=== PATIENT | male | born 1945 | race Two or more races ===

== ENCOUNTER 2016-05-28 09:54 | Observation (INO) | payer MEDICARE, MEDICAID ==
[2016-04-25 20:38] VITALS: BMI 26.1
[~2016-05-28 09:54] MED LIST: ISOVUE-300 (61%) 50 ML ONE
[2016-05-28] MEDS ORDERED: Levofloxacin 500 mg/100 ml D5W 500 MG/100 ML RTU IV ONE (10:34)
[2016-05-28] MEDS ORDERED: ONDANSETRON HCL 4 MG ODT TAB PO PRN (12:19)
[2016-05-28] MEDS ORDERED: LABETALOL 20 MG/4 ML SYRINGE IV PRN (12:19)
[2016-05-28] MEDS ORDERED: HYDROmorphone 1 MG INJECTION IV PRN ×2 (12:19)
[2016-05-28] MEDS ORDERED: FENTANYL 100 MCG/2 ML VIAL IV PRN ×2 (12:19)
[2016-05-28] MEDS ORDERED: MEPERIDINE 25 MG/ML TUBEX IV PRN (12:19)
[2016-05-28] MEDS ORDERED: hydrALAZINE 20 MG/ML VIAL IV PRN (12:19)
[2016-05-28] MEDS ORDERED: ONDANSETRON HCL 4 MG/2 ML VIAL IV PRN ×2 (12:19→17:13)
--- NOTE | 2016-05-28 12:19 | HIM.ANES ---
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 LAD) EKG Rhythm: Sinus Bradycardia (56) HEENT: Yes: Removable Dental Work, Hx Vision Problem (READING GLASSES), Other HEENT Problems Hx Other HEENT Problems: ALLERGIC RHINNITIS Respiratory: Yes: Hx Snoring Gastrointestinal: Yes: Hx Gastroesophageal Reflux Disease, Hx Gastrointestinal Disorders, Hx Colonoscopy ([address] SALEEM) Genitourinary: Yes: Hx Renal Disease Neurological/Musculoskeletal: No: HX Cerebrovascular Accident, Hx Neurological Disorders Psychological: No Hx Depression, No Hx Mental/Emotional Disorders Endocrine: Yes: Hx Hypothyroidism Blood/Autoimmune: Yes: Hx Anemia No: Hx AIDS, Hx Hepatitis (type) Smoking Status: Former smoker Hx Stress Test (date): Yes (08/2013 ABNORMAL SHOWING ISCHEMIA, NORMAL STRESS AFTER CABG) Hx Echocardiogram (date): Yes (10/19/2013 EF 60-65%, MILD AR) Surgical History: Yes: CABG (09/2013 OCHOA TO LAD) Other Surgical History: CYSTOSCOPY - Focused Physical Exam NPO since: 05/27/16 1900 Mallampati: Class II Thyromental Distance: Greater than 3 Neck: Full Range of Motion Dental: Removable Dental Work Cardiovascular/Chest: Normal Respiratory: Lungs clear Any problems with anesthesia, including nausea and vomiting?: No Any relatives with a history of Malignant Hyperthermia?: No Does patient have a history of Malignant Hyperthermia?: No Beta Sallie given (if appropriate): N/A Does the patient have a history of Motion Sickness-: No Other: Allergies Allergy/AdvReac Type Severity Reaction Status Date / Time Beta-Adrenergic Agents Allergy MALAISE Verified 05/28/16 11:14 Home Medications Medication Instructions Recorded Last Taken Type Albuterol Sulfate MDI [Proventil 2 puff INH Q4 PRN 05/25/16 Unknown History HFA] Aspirin [Aspirin EC] 81 mg PO DAILY 05/25/16 1 Week Ago History Atorvastatin Calcium [Lipitor] 40 mg PO DAILY 05/25/16 05/27/16 History Cetirizine HCl [Zyrtec] 10 mg PO DAILY 05/25/16 05/27/16 History Famotidine [Pepcid] 20 mg PO DAILY PRN 05/25/16 Unknown History Levothyroxine [Synthroid, Levoxyl] 25 mcg PO DAILY 05/25/16 05/28/16 08:30 History Losartan Potassium [Cozaar] 50 mg PO DAILY 05/25/16 05/28/16 08:30 History Nitroglycerin Sublingual Tab [NTG 0.4 mg SL .Q5MIN X 3 PRN 05/25/16 Unknown History (NitroStat Sublingual Tab)] Tamsulosin HCl [Flomax] 0.4 mg PO DAILY 05/25/16 05/27/16 History Height and Weight Patient's height 5 ft 4 in Patient's weight 68.039 kg BMI 26.1 Vital Signs Temperature 97.9 F 05/28/16 10:47 Pulse Rate 61 05/28/16 10:47 Respiratory Rate 18 05/28/16 10:47 Blood Pressure 136/75 05/28/16 10:47 Pulse Oxygen Saturation 98 05/28/16 10:47 METS - Level of Activity: Climbing stairs(1 flight),walking level ground, running short distance - Anesthetic Plan Anesthesia Type: General ASA Class: 3 -: I have examined this patient and reviewed the medical record. The patient has been assessed prior to anesthesia. Risks and benefits of anesthesia and anesthetic technique options have been discussed and all questions answered. The patient accepts the risk and desires me to proceed with the planned anesthetic.
[2016-05-28] MEDS ORDERED: ACETAMINOPHEN 325 MG/TAB TABLET PO ONE ×2 (13:43→13:44)
[2016-05-28] MEDS ORDERED: EPHEDrine 50 MG/ML VIAL IM ONE (15:01)
[2016-05-28] MEDS ORDERED: FENTANYL 100 MCG/2 ML VIAL IV ONE (15:01)
[2016-05-28] MEDS ORDERED: MIDAZOLAM 2 MG/2 ML VIAL IV ONE (15:01)
[2016-05-28] MEDS ORDERED: LIDOCAINE 100 MG PFS IV ONE (15:01)
[2016-05-28] MEDS ORDERED: DEXAMETHASONE 4 MG/ML VIAL IV ONE (15:01)
[2016-05-28] MEDS ORDERED: PROPOFOL 200 MG/20 ML VIAL IV ONE (15:01)
[2016-05-28] MEDS ORDERED: ONDANSETRON HCL 4 MG/2 ML VIAL IV ONE (15:01)
[2016-05-28] MEDS ORDERED: FENTANYL 100 MCG/2 ML VIAL ONE (16:33)
[2016-05-28] MEDS ORDERED: HYDROmorphone 1 MG INJECTION ONE (16:34)
--- NOTE | 2016-05-28 16:46 | HIMOPRPT ---
PROCEDURE: DATE OF PROCEDURE: 05/28/16 PREOPERATIVE DIAGNOSIS: Multiple Bladder calculi and BPH. POSTOPERATIVE DIAGNOSIS: Multiple Bladder calculi and BPH. PROCEDURE PERFORMED: Cystoscopy, laser lithotripsy bladder calculi, bladder stone removal. SURGEON: Brennen Alonso MD ANESTHESIA USED: General. INDICATION FOR PROCEDURE: The patient is an 70 OTHER M with a history of multiple bladder calculi and BPH . The patient is brought in now for stone removal. PROCEDURE IN DETAIL: The patient was brought into the operating room and placed on the table in the supine position. After adequate general anesthesia was achieved, he was carefully placed in dorsal lithotomy and the perineum prepped and draped in sterile fashion for the performance of cystoscopy. Initially, a 23-Bhutanese scope was passed. Bladder inspected and the stones were visualized. Bladder was filled. The 550 nanometer laser fiber was then placed in using the higher powered holmium laser the stones were sequentially lasered and fragmented. He had approximately 6 large bladder calculi. No lesions were noted in the bladder he did have a large median lobe. I was able to remove all of the stones. At this point then, the procedure was terminated. A final cystoscopy assured good hemostasis and the bladder was intact. The patient tolerated all this well. The bladder was filled, cystoscope removed, 20-B[place] [address] Belle was then placed to drain the bladder. The patient was then awakened and taken to the recovery room in good condition.
[2016-05-28] MEDS ORDERED: HYDROCODONE 5 MG/ACETAMIN 325 MG TAB PO PRN (17:13)
[2016-05-28] MEDS ORDERED: LEVOTHYROXINE 25 MCG (0.025 MG) TAB PO ONE (18:00)
[2016-05-28] MEDS: D5W/LR 1,000 ML IV SCH (18:30)
[2016-05-28] MEDS ORDERED: Vaccine Screening Complete SCH (19:00)
[2016-05-29] MEDS: D5W/LR 1,000 ML IV SCH (03:54)
[2016-05-29] MEDS ORDERED: PNEUMOCOCCAL 0.5 ML VIAL IM ONE (08:00)
[2016-05-29] MEDS ORDERED: BUDESONIDE 0.5 MG NEB NEB SCH (08:00)
[2016-05-29] MEDS ORDERED: LISINOPRIL 10 MG TAB PO SCH (09:00)
[2016-05-29] MEDS ORDERED: ALBUTEROL 6.7 GM MDI INH PRN (09:50)
[2016-05-29] MEDS ORDERED: FAMOTIDINE 20 MG TAB PO PRN (09:53)
[2016-05-29] MEDS ORDERED: NITROGLYCERINE 0.4 MG TAB SL PRN (09:54)
[2016-05-29] MEDS ORDERED: Levofloxacin 500 mg/100 ml D5W 500 MG/100 ML RTU IV SCH (10:00)
[2016-05-29] MEDS ORDERED: LEVOTHYROXINE 25 MCG (0.025 MG) TAB PO SCH (10:00)
[2016-05-29] MEDS ORDERED: CETIRIZINE HCL 10 MG TAB PO SCH (10:00)
[2016-05-29] MEDS ORDERED: ATORVASTATIN 40 MG TAB PO SCH (10:00)
[2016-05-29] MEDS ORDERED: LOSARTAN POTASSIUM 50 MG TAB PO SCH (10:00)
[2016-05-29] MEDS ORDERED: TAMSULOSIN HCL 0.4 MG CAP PO SCH (10:00)
--- NOTE | 2016-05-29 13:35 | PCM.UROPRO ---
Chief Complaint: He is status post bladder lithotripsy yesterday and has been feeling better. He is tolerating p.o. and the Belle is draining well with mild hematuria. Post Op Day #: 1 Post-op Assessment: Reports: Feels better - Physical Exam Vital Signs: Temperature: 97.9 F (05/29/16 09:27) HR: 59 (05/29/16 09:27) RR: 19 (05/29/16 09:27) BP: 110/55 (05/29/16 09:27) Pulse Ox: 97 (05/29/16 09:27) General: Alert, Oriented x3, Cooperative Gastrointestinal: Soft. negative: Distended, Tender Genitourinary: Testicle, Scrotum (Normal), Catheter in Place Skin: Warm,Dry and Intact Neurological: Normal speech Plan: Will plan discharge home today with catheter Case Care Discussed with: Patient
--- NOTE | 2016-05-29 13:38 | PCM.DCS92 ---
- Final/Secondary Discharge Diagnosis (1) Bladder calculi Resolved N21.0 - CALCULUS IN BLADDER Plan/Goal/Comment: Removed surgically (2) Hematuria Acute R31.9 - HEMATURIA, UNSPECIFIED Plan/Goal/Comment: Encourage hydration and will monitor Discharge Disposition: Home Discharge Condition: Improved Cognitive Discharge Status: Unimpaired Fuctional Discharge Status: Independent Home Medications/ New Prescriptions: No Action Tamsulosin HCl [Flomax] 0.4 mg PO DAILY Cetirizine HCl [Zyrtec] 10 mg PO DAILY Losartan Potassium [Cozaar] 50 mg PO BID Aspirin [Aspirin EC] 81 mg PO DAILY Nitroglycerin Sublingual Tab [NTG (NitroStat Sublingual Tab)] 0.4 mg SL .Q5MIN X 3 PRN PRN Reason: Chest Pain Or Discomfort Atorvastatin Calcium [Lipitor] 40 mg PO DAILY Albuterol Sulfate MDI [Proventil HFA] 2 puff INH Q4 PRN PRN Reason: Shortness Of Breath Levothyroxine [Synthroid, Levoxyl] 25 mcg PO DAILY Famotidine [Pepcid] 20 mg PO DAILY PRN PRN Reason: Heartburn Or Indigestion P.o. Cipro and Vicodin Diet at Discharge: As Tolerated Activity: No Heavy Lifting Call Office For: Fever over 101 F Discontinue use of:: Alcohol, All Illegal Substances, All Types of Tobacco - DC Summary Notes Hospital Course Note:: Discharge summary on patient named BABATUNDE CRAWFORD admitted to [facility] on 05/28/16 by Brennen Alonso MD. Date of discharge is []. The patient was taken to the operating room on May 28 where he underwent laser lithotripsy of multiple bladder calculi. He was kept for observation and had a mild amount of hematuria which has improved. At this time he is afebrile and tolerating a regular diet. Belle catheter is in place and draining well with mild hematuria. We will discharge him home on a course of p.o. Cipro and Vicodin p.r.n. for pain
[2016-05-29 13:49] VITALS: BP 147/64; PULSE 55; TEMP 98.1
== END 2016-05-29 15:02 | disposition home or self-care (01) ==
LOC: SDC 09:54 → MPS3 17:00 → INTOOBSV 17:00
PROVIDERS: ADMIT Urology; ATTEND Urology
PROC: 0TCB8ZZ Extirpation of Matter from Bladder, Via Natural or Artificial Opening Endoscopic (ICD-10-PCS; principal; 2016-05-28 12:00)
DX: N21.0 Calculus in bladder (principal); N40.1 Benign prostatic hyperplasia with lower urinary tract symptoms; Z23 Encounter for immunization; I10 Essential (primary) hypertension; E78.00 Pure hypercholesterolemia, unspecified; E03.9 Hypothyroidism, unspecified; Z79.899 Other long term (current) drug therapy
CPT/HCPCS: 52318; 90732; 94640; A9270; G0009; G0237; G0378; J1100; J1170; J1956; J2001; J2405; J2550; J3010; J3490; 90471; J2250